=== PATIENT | female | born 1950 | race Asian ===

== ENCOUNTER → 2018-07-31 | Outpatient (CLI) | payer MEDICARE, OTHER ==
--- NOTE | 2018-07-31 16:17 | CONS ---
Assessment/Plan Assessment/Plan Hospital Course (Demo Recall) 68-year-old female with 2 months of acute left knee pain. The pain has significantly improved since it started. She does not have mechanical symptoms. She does not have an effusion at this time. It is possible she had an insufficiency fracture which caused her acute pain secondary to her increased activity of walking and is now healed. X-rays today do not show any collapse of the bone. Is also possible she has a small medial meniscus tear. At this time would like to start conservative treatment with a left knee steroid injection and physical therapy and low impact activity and ice. Follow-up 3 months. Assessment/Plan (Daily) Left knee steroid injection procedure: Risks and benefits of steroid injection reviewed with patient. The risks include infection, failure, pain, swelling, nerve/tendon/ligament damage. The patient verbalized understanding and verbal consent was obtained prior to procedure. The left knee was prepped in a sterile fashion with alcohol and betadine the site of injection was confirmed. Lateral approach was used. The skin and capsule was anesthetized with 3mL 1% lidocaine. The left left knee was injected with 2mL 1% lidocaine, 2mL 0.25% bupivacaine, 40mg Depo-Medrol. Injection flowed freely. Good hemostasis was achieved and no complications noted. The patient tolerated the procedure well. Limit activity and ice for 24-48 hours Consultation Date/Type/Reason Admit Date/Time Date of Consultation: Jul 31, 2018 Reason for Consultation Left knee pain Date/Time of Note DATE: 07/31/18 TIME: 16:10 Hx of Present Illness This is a 68-year-old female with a chief complaint of left knee pain. The pain began approximately 2 months ago. There was no injury. Patient states there was some swelling. The patients pain is in the medial aspect of the left knee. Pain is not radiating to the lower leg. The pain is rated as a 8/10. The pain is about 50% better since the original time the pain started. When the pain started in May she was unable to bear full weight from pain and had difficulty ambulating. Patient denies complaints of numbness or tingling. The pain is exacerbated by climbing stairs and ambulation. Pain is not relieved by NSAID's. Patient has been taking naproxen on a p.r.n. basis as well as using ice. Duration: 2-month Injury: No Walking tolerance: 34 block Limp: Sometimes Support: No Swelling: Yes Crepitation: Yes Instability: No Stairs: Side steps upstairs Physical Therapy: No Injections: No NSAIDs: Naproxen as needed Prior surgery: None no Back pain: yes Hip pain: No Risk of AVN : No Patient denies fever, chills, shortness of breath, chest pain, nausea/vomiting, constipation, diarrhea, numbness, and tingling. Past Medical History Hypertension Edema Colitis Stroke in 1988 Past Surgical History Past Surgical Hx: no surgical history Family History Significant Family History: no pertinent family hx Social History Alcohol Use: none Smoking Status: Never smoker Drug Use: none Exam/Review of Systems Exam Vitals Weight: 107 pounds Height: 5 foot Temperature: 90.4 Heart Rate: 69 Blood Pressure: 171/78 Respiratory Rate: 14 Exam General: Alert, oriented x3. No Acute Distress. Heart: Regular rate and rhythm. Lungs: No respiratory distress. No accessory muscle use. Musculoskeletal: Left Knee This is a well developed female who is alert, oriented times three and in no apparent distress. Skin is intact over the left knee as well as the lower extremity with no abrasions, lacerations, or ulcerations. Observation of the patient's gait reveals a non- antalgic gait with No thrust. Frontal plane alignment is neutral. There is pain on palpation of medial femoral condyle and medial joint line. No joint effusion. The patient demonstrates grinding anteriorly with ROM. Range of motion: 0 extension to approximately 140 degrees of flexion. Collateral ligament testing reveals no instability with varus or valgus stress at 0 and 30 degrees of flexion. Negative Peggy's and negative posterior drawer. Neurovascularly intact with 5/5 EHL/tibialis anterior/gastroc. Sensation intact to light touch in a sural, saphenous, deep peroneal, superficial peroneal, medial and lateral plantar nerve distribution. Palpable, symmetric dorsalis pedis and posterior tibial pulses in both lower extremities. Hip examination normal. Imaging Imaging The patient received a standard set of films today that were personally reviewed. Imaging included a standing bilateral knee AP, PA flexion, merchant views and a dedicated lateral of the affected knee: There is neutral alignment of the knee. There is no loss of joint space in any compartment(s). There is no osteophyte formation. There is no subchondral sclerosis. There are no subchondral cysts. No fracture. No AVN or collapse of femoral condyle. Normal knee x-ray. GALDINO MILLAN MD Jul 31, 2018 16:17
--- NOTE | 2018-08-02 16:20 | RADRPT ---
PROCEDURE: XR knees CLINICAL INDICATION: bilateral knee pain. TECHNIQUE: 4 weightbearing views of the bilateral knees were obtained. COMPARISON: None. FINDINGS: Right knee: There is no acute fracture dislocation. Osseous structures are intact. There are mild os teoarthritic changes of the medial tibio-femoral compartment. There is no knee joint effusion. Left knee: There is no acute fracture dislocation. Osseous structures are intact. There are minimal osteoarthritic changes of the medial tibio-femoral compartment. There is a small knee joint effusion. IMPRESSION: 1. Mild osteoarthritis of the right knee medial tibio-femoral compartment. 2. Minimal osteoarthritis of the left knee medial tibio-femoral compartment. 3. Small left knee joint effusion. RPTAT: DD Physician Cindi Date Time Electronically viewed and signed by Physician Cindi on 08/02/2018 16:20 /
== END | disposition home or self-care (01) ==
LOC: HKI 13:53
PROVIDERS: ATTEND Orthopaedic Surgery Adult Reconstructive Orthopaedic Surgery
DX: M25.562 Pain in left knee (principal); I10 Essential (primary) hypertension; Z86.73 Personal history of transient ischemic attack (TIA), and cerebral infarction without residual deficits
CPT/HCPCS: 20610; 73564; G0463